=== PATIENT | female | born 1975 | race Caucasian/White ===

== ENCOUNTER → 2016-03-26 | Outpatient (CLI) | payer OTHER ==
[~2016-03-26] MED LIST: DOXYCYCLINE 10100 MG PO; IBU600 MG PO; LOVENOX 4040 MG/0.4 SQ; MOTRIN 800800 MG/TAB PO; PERCOCET 325 MG1 TA2 PO; PRENATAL1 TA1; PREPH TOP
== END ==
LOC: COL.VAS 03-25 08:45
DX: I08.0 Rheumatic disorders of both mitral and aortic valves (principal); R01.1 Cardiac murmur, unspecified

== ENCOUNTER → 2021-10-27 | Outpatient (CLI) | payer BC | LOC: MC.RAD 11:28 | DX: Z12.31 Encounter for screening mammogram for malignant neoplasm of breast (principal) ==

== ENCOUNTER → 2022-12-21 | Outpatient (CLI) | payer BC | LOC: CANPRECLI → MC.RAD 12-14 09:15 | DX: Z12.31 Encounter for screening mammogram for malignant neoplasm of breast (principal) ==